=== PATIENT | male | born 1960 | race Caucasian/White ===

== ENCOUNTER 2017-05-01 07:20 | Emergency (ER) | payer MEDICARE ==
[~2017-05-01] VITALS: Ht 185.4 cm; Wt 82.0 kg
[2017-05-01 07:22] VITALS: BP 109/60; PULSE 102; RESP 16; TEMP 98.7; O2SAT 97
[2017-05-01 07:41] VITALS: BP 105/57; PULSE 101; RESP 20; O2SAT 100
[2017-05-01] MEDS ORDERED: GABA600T PO ×2 (07:46)
[2017-05-01] MEDS ORDERED: LISI10TA3 PO ×2 (07:46)
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
[2017-05-01] MEDS ORDERED: MOBI15TA PO ×2 (10:07)
[2017-05-01] MEDS ORDERED: AMOX500T PO ×2 (10:08)
== END 2017-05-01 10:39 | disposition home or self-care (01) ==
LOC: NEPC 07:20
DX: S09.90XA Unspecified injury of head, initial encounter (principal); S01.512A Laceration without foreign body of oral cavity, initial encounter; T14.8XXA Other injury of unspecified body region, initial encounter; M79.641 Pain in right hand; M25.562 Pain in left knee; Y09 Assault by unspecified means
CPT/HCPCS: 70450; 71010; 72125; 73130; 73564; 99285